=== PATIENT | female | born 1995 | race Caucasian/White ===

== ENCOUNTER 2020-05-18 09:58 | Emergency (ER) | payer MEDICAID, SELFPAY ==
--- NOTE | ~2020-05-18 | CT_ITS ---
EXAMINATION: CT ABDOMEN AND PELVIS WITHOUT CONTRAST CLINICAL INFORMATION: Right flank pain. Right lower quadrant pain. COMPARISON: None TECHNIQUE: Multidetector volumetric imaging was performed from the superior aspect of the liver through the pubic symphysis. Sagittal and coronal reformatted images were obtained on the technologist's workstation. This CT examination was performed using dose optimization techniques as appropriate, variously including the following: *Automated exposure control *Adjustment of mA and/or kV according to patient size (this includes techniques or standardized protocols for targeted exams where dose is matched to indication/reason for exam; i.e. extremities or head) *Use of iterative reconstruction technique DLP: 299 mGy-cm FINDINGS: LUNG BASES: The visualized lung bases are unremarkable. LIVER, GALLBLADDER, AND BILIARY TREE: The liver is normal in size, shape, and attenuation. No focal hepatic lesion or biliary ductal dilatation is present. The gallbladder is unremarkable with no evidence of radiopaque gallstones, gallbladder wall thickening, or obvious pericholecystic inflammatory changes. PANCREAS: Unremarkable. SPLEEN: Unremarkable. ADRENAL GLANDS: Unremarkable. KIDNEYS AND URETERS: A nonobstructing calculus in the upper pole the right kidney measures 0.3 cm. There is an adjacent tiny punctate calculus. There is no hydronephrosis. No ureteric calculus is demonstrated. There is no hydronephrosis. The kidneys are otherwise unremarkable. BLADDER: Unremarkable. GASTROINTESTINAL TRACT: The stomach and duodenum are unremarkable. No abnormality of the small bowel or mesentery is demonstrated. The colon is unremarkable. The appendix is partially visualized. No inflammatory changes are seen. ABDOMINAL WALL: No significant hernia is appreciated. LYMPH NODES: Normal. VASCULAR: Unremarkable. PELVIC VISCERA: The uterus is retroverted but otherwise unremarkable. The adnexa are relatively prominent but within normal limits. There is a small amount of pelvic free fluid. OSSEOUS STRUCTURES: Unremarkable. CT/CT abdomen pelvis wo con IMPRESSION: 1. Nonobstructing calculi right kidney. No ureteric or bladder calculus demonstrated. No hydronephrosis. 2. Difficult visualization of the appendix which appears partially visualized. No inflammatory changes are evident.
[2020-05-18 10:43] VITALS: BP 134/59; PULSE 64; RESP 15; TEMP 37.3; O2SAT 99; BMI 20.1
--- NOTE | 2020-05-18 10:52 | ED_ITS ---
HPI - General Adult General Chief complaint: Abdominal Pain Stated complaint: KIDNEY STONES Time Seen by Provider: 05/18/20 10:50 Source: patient Mode of arrival: ambulatory Limitations: no limitations History of Present Illness HPI narrative: 24-year-old female who presents emergency department for evaluation of right flank and right lower quadrant pain. She states the pain started yesterday afternoon and came on suddenly. She states the pain is a constant, sharp pain which is 10/10 at its worst. The pain does not change with movement. She states that she has had urinary frequency and dysuria. She is not certain when her last menstrual period occurred but she believes that she is due for a menstrual period in the next 1-2 days. She states she has had chills, nausea and has vomited 2 to 3 times a day since the onset of the pain. She took ibuprofen yesterday with no relief for pain. She states she has had similar pain in the past February 2020 and she was diagnosed with a kidney stone. She states that her pain is currently 8/10 in the emergency department. Related Data Previous Rx's Medication Instructions Recorded ondansetron 4 mg PO Q6-8H PRN #14 tab 05/18/20 oxycodone 5 mg PO Q4H PRN #14 tab 05/18/20 Allergies Allergy/AdvReac Type Severity Reaction Status Date / Time No Known Allergies Allergy Unverified 12/21/19 16:32 Review of Systems Review of Systems: Yes all other systems are reviewed and are negative Neurologic: Reports Abnormal speech present [facility] Past Medical History [facility] Narrative: Patient has no chronic medical problems, she denies tobacco use, she occasionally drinks alcohol, once or twice a month, she denies drug use . Medical History (Updated 05/18/20 @ 13:25 by Shade Donnelly MD) Kidney stones Social History Social History Advance Directives: No Advance Directives Information Provided: Yes Physical Exam Vital Signs: Vital Signs: Last Vital Signs Temp 99.2 F 05/18/20 10:43 Pulse 64 05/18/20 10:43 Resp 15 05/18/20 10:43 BP 134/59 L 05/18/20 10:43 Pulse Ox 99 05/18/20 10:43 Body Mass Index 20.1 Const: General: cooperative and healthy appearing Nutritional Appearance: thin Orientation/consciousness: oriented to person and oriented to place Limitations: no limitations HENMT: Head: Yes normal to inspection, Yes normocephalic and Yes atraumatic Ears: external ears normal General nose exam: Normal external nose present Face and sinus: Yes normal facial exam Mouth: Normal oral and palatal mucosa present Throat: Yes posterior oropharynx normal Eyes: Periorbital: periorbital findings normal Eyelids: Yes eyelids normal Conjunctivae: conjunctivae normal Sclerae: sclerae normal Corneas: corneas normal Pupils: Equal, round and reactive pupils present Direct Ophthalmoscopy: normal light reflex Neck: Neck: Yes full ROM, Yes no lymphadenopathy, Yes no meningeal signs, Yes trachea midline and Yes supple Chest: Chest palpation & inspection: normal inspection of the chest and normal palpation of entire chest wall Resp: Effort & Inspection: normal respiratory effort and able to speak in complete sentences Auscultation: clear to auscultation bilaterally Cardio: Rate: regular rate Rhythm: regular rhythm Heart sounds: S1 normal heart sound present, S2 normal heart sound present and no murmurs GI: Inspection: Yes normal to inspection Palpation (GI): Soft to palpation, Tenderness to palpation present (GI) (Mild right lower quadrant), no guarding, not rigid and No hepatosplenomegaly present : General: Yes CVA tenderness ([id number] right sided) Back/Spine/Pelvis: Cervical Spine: normal cervical lordosis Thoracic/Lumbar Spine: thoracic and lumbar spine normal to inspection Skin: Lesions: no lesions Rashes: no rashes Wounds: no wounds Neuro: General: oriented to person, oriented to place and no meningeal signs Cranial nerves: Yes Equal, round and reactive pupils present Cognition (Neuro): normal cognition Speech: Abnormal speech present Motor exam (neuro): 5/5 motor strength present throughout Extrem: General: Yes normal to inspection and Yes full ROM Psych: Appearance: well kempt Mental Status: mental status grossly normal Speech and movement: Normal speech and movement present Affect: normal affect Attitude: cooperative Thought process: Normal thought process present Thought content: Normal thought content present Course Course Course Narrative: 24-year-old female with a history of kidney stones February 2020 who presents emergency department for evaluation of sudden onset of right lower quadrant and right flank pain. Physical examination did reveal tenderness in these areas the patient's pain is treated with Toradol 30 mg IV, her nausea was treated with Zofran 4 mg IV and she was given normal saline x1 L. I did order a workup on this patient to include laboratory evaluation and CT scan of abdomen pelvis without contrast to evaluate for possible kidney stones. 1316: The patient's pain improved with the above treatment. The patient's repeat abdominal exam did reveal [id number] right lower, suprapubic and left lower quadrant tenderness with resolution the right flank CVA tenderness. Patient's laboratory evaluation reveals slight elevation of white blood count [id number], the patient did have 50-75 RBC and 0 WBCs in her urine. CT scan of the abdomen pelvis without IV contrast did not reveal a clear cause for the patient's pain. The patient does have nausea right renal calculus with no hydronephrosis and no hydroureter. The patient's appendix was only partially visualized but there was no inflammatory changes noted. At this time I do not have a clear etiology for the patient's pain but I suspect that it may still be renal colic. Appendicitis nasal be considered. The patient was advised to take Tylenol and ibuprofen for pain for pain not relieved by these 2 medications she was given prescription for oxycodone. I did discuss the addicting potential oxycodone with patient. She was also given a prescription for Zofran. I did tell the patient she continues to have pain tomorrow than she needs to return to the emergency department 1st re-evaluated or possible appendicitis. [facility] search revealed no prescriptions for controlled medications. Medical Decision Making Lab Data Result diagrams: 05/18/20 10:56 05/18/20 10:56 Labs: Lab Results 05/18/20 05/18/20 05/18/20 Range/Units 10:56 10:56 10:56 WBC 12.2 H (4.8-10.8) X10*3/uL RBC 4.10 L (4.20-5.50) X10*6/uL Hgb 12.2 (12.0-16.0) g/dl Hct 37.0 (37-47) % MCV 90.2 (80-98) fL MCH 29.8 (27.0-33.0) pg MCHC 33.0 (31.0-35.0) g/dl RDW 13.2 (11.0-16.0) % Plt Count 292 (160-400) X10*3/uL MPV 10.4 (9.4-12.3) fL Immature Gran % (Auto) 0.3 (0.0-0.4) % Neut % (Auto) 75.6 H (45-73) % Lymph % (Auto) 16.3 L (20-40) % [facility] % (Auto) 6.6 (2-11) % Eos % (Auto) 0.9 (0-4) % Baso % (Auto) 0.3 (0-2) % Lymph # (Auto) 2.0 (1.2-4.9) X10*3/uL [facility] [place] [facility] # (Auto) 0.8 (0.1-1.2) X10*3/uL Eos # (Auto) 0.1 (0.0-0.4) X10*3/uL Baso # (Auto) 0.0 (0.0-0.2) X10*3/uL Abs Immat Gran (auto) 0.04 H (0.00-0.03) X10*3/uL Absolute Neuts (auto) 9.2 H (2.0-8.3) X10*3/uL Absolute Nucleated RBC 0.000 (0.0-0.012) X10*3/uL Nucleated RBC % (auto) 0.0 (0.0-0.2) /100WBC Sodium 141 (135-145) mmol/L Potassium 3.9 (3.3-5.1) mmol/L Chloride 108 (96-108) mmol/L Carbon Dioxide 26 (22-29) mmol/L Anion Gap 11 L (12-20) BUN 13 (9-16) mg/dL Creatinine 0.72 (0.5-1.4) mg/dL Estim Creat Clear Calc 95.7 Estimated GFR > 60 Random Glucose 83 (60-115) mg/dL Calcium 8.6 (8.4-10.2) mg/dL Total Bilirubin 0.6 (0.0-1.0) mg/dL AST 17 (5-31) U/L ALT 12 (0-31) U/L Alkaline Phosphatase 55 (39-117) U/L Total Protein 6.7 (6.5-8.0) g/dL Albumin 4.5 (3.5-5.0) g/dL Lipase 11 (8-78) U/L Urine Color YELLOW Urine Appearance HAZY Urine pH 6.0 (5.0-8.0) Ur Specific [place] 1.025 (1.005-1.025) Urine Protein NEG (NEG-TRACE) MG/DL Urine Glucose (UA) NEG (NEG) MG/DL Urine Ketones NEG (NEG) MG/DL Urine Blood 2+ H (NEG) Urine Nitrite NEG (NEG) Ur Leukocyte Esterase NEG (NEG) Urine RBC 10-14 H (0) /HPF Urine WBC 0-2 (0-4) /HPF Ur Squamous Epith Cells 1+ /LPF Urine Bacteria TRACE /LPF Urine Mucus 3+ /LPF Urine Test NEGATIVE (NEGATIVE) Discharge Plan Discharge Clinical Impression: Renal colic on right side Abdominal pain Qualifiers: Abdominal location: right lower quadrant Qualified Code(s): R10.31 - Right lower quadrant pain Patient Disposition: Home, Self-Care Instructions: Renal Colic (ED), Abdominal Pain (ED) Additional Instructions: Your laboratory evaluation did reveal an elevated white blood cell count with blood in her urine otherwise was unremarkable. The CT scan of your abdomen pelvis without IV contrast did not reveal a clear cause for your pain. You do have a stone in your right kidney but this is not causing your pain. At this time I believe that your pain is related to kidney pain and this is called renal colic 1 we cannot find stone. I am also concerned that he might have appendicitis since you do have tenderness in the right lower part of her abdomen however I do not think that we can make this diagnosis at this time. Take ibuprofen 200 mg pills, 3 pills every 6 hours as needed for pain. Take Tylenol (acetaminophen) 500 mg pills, 2 pills every 4-6 hours as needed for pain. For pain not relieved by ibuprofen or Tylenol take oxycodone 5 mg pills, 1 pill every 4 hours as needed for pain. Do not drive or work while taking this medication since they can cause sleepiness. Oxycodone is a narcotic medication that can be addicting. If you are concerned about addiction you can ask the pharmacist for less pills or do not get this prescription filled. Take Zofran (ondansetron) 4 mg ODT, 1 pill dissolved in mouth every 8 hours as needed for nausea or vomiting. If you still have pain tomorrow especially if it is in the right lower part of your belly, then you need to return to the emergency department so that we can re-evaluate you for possible appendicitis. Follow-up with your doctor in 2 days. Please return to the emergency department if your symptoms get worse or if you develop any symptoms that are concerning to you. Prescriptions: New ondansetron 4 mg tablet,disintegrating 4 mg PO Q6-8H PRN (Reason: nausea and vomiting) Qty: 14 RF: 0 oxycodone 5 mg tablet 5 mg PO Q4H PRN (Reason: pain) Qty: 14 RF: 0
[2020-05-18] MEDS: Ketorolac Tromethamine 30 MG/ML VIAL IVPUSH (10:59)
[2020-05-18] MEDS: 0.9 % Sodium Chloride 1,000 ML 999 ML IV (11:00)
[2020-05-18] MEDS: ondansetron HCL 4 MG/2 ML VIAL IVPUSH (11:00)
[2020-05-18 11:07] LABS: MANUAL DIFF FLAG NO
[2020-05-18 11:09] LABS: Basophils Percent Auto 0.3 % (0-2); Eosinophils Absolute Auto 0.1 X10*3/uL (0.0-0.4); Eosinophils Percent Auto 0.9 % (0-4); Hemoglobin 12.2 g/dl (12.0-16.0); Imm Gran Abs Auto 0.04 X10*3/uL (0.00-0.03); Imm Gran Pct Auto 0.3 % (0.0-0.4); Lymphocytes Percent Auto 16.3 % (20-40); Mean Corpuscular Hemoglobin 29.8 pg (27.0-33.0); Mean Corpuscular Volume 90.2 fL (80-98); Mean Platelet Volume 10.4 fL (9.4-12.3); Monocytes Absolute Auto 0.8 X10*3/uL (0.1-1.2); Monocytes Percent Auto 6.6 % (2-11); Neutrophils Absolute Auto 9.2 X10*3/uL (2.0-8.3); Neutrophils Percent Auto 75.6 % (45-73); Platelet Count 292 X10*3/uL (160-400); Red Cell Distribution Width 13.2 % (11.0-16.0); White Blood Count 12.2 X10*3/uL (4.8-10.8)
[2020-05-18 11:20] LABS: Appearance Urine HAZY; Color Urine YELLOW; Glucose Urine UA NEG (NEG); Leukocyte Esterase Urine NEG (NEG); Nitrite Urine NEG (NEG); Specific Gravity - Urine 1.025 (1.005-1.025); Urine Blood 2+ (NEG); Urine Ketones NEG (NEG); Urine Protein NEG (NEG-TRACE)
[2020-05-18 11:22] LABS: UPreg QC Valid YES; Urine Pregnancy NEGATIVE (NEGATIVE)
[2020-05-18 11:36] LABS: Bacteria Urine TRACE /LPF; Mucus Urine 3+ /LPF; Squamous Epithelial Cell Urine 1+ /LPF; WBC Urine 0-2 /HPF (0-4)
[2020-05-18 11:39] LABS: Alanine Aminotransferase 12 U/L (0-31); Albumin Level 4.5 g/dL (3.5-5.0); Alkaline Phosphatase 55 U/L (39-117); Anion Gap 11 (12-20); Aspartate Amino Transferase 17 U/L (5-31); Bilirubin Total 0.6 mg/dL (0.0-1.0); Blood Urea Nitrogen 13 mg/dL (9-16); Calcium 8.6 mg/dL (8.4-10.2); Carbon Dioxide 26 mmol/L (22-29); Chloride 108 mmol/L (96-108); Creatinine Clr Calc Pharmacy 95.7; Estimated Glomerular Filt Rate > 60; Glucose Random 83 mg/dL (60-115); Lipase 11 U/L (8-78); Potassium 3.9 mmol/L (3.3-5.1); Sodium 141 mmol/L (135-145); Total Protein 6.7 g/dL (6.5-8.0)
== END 2020-05-18 13:41 | disposition home or self-care (01) ==
PROVIDERS: Emergency Provider Emergency Medicine Emergency Medical Services
DX: N20.0 Calculus of kidney (principal); R10.31 Right lower quadrant pain; Z87.442 Personal history of urinary calculi
CPT/HCPCS: 36415; 74176; 80053; 81001; 81025; 83690; 85025; 96361; 96374; 96375; 99283; 99284; J1885; J2405

== ENCOUNTER 2024-08-02 15:15 | Outpatient (REF) | payer MEDICAID, SELFPAY ==
[2024-08-02 16:05] LABS: MANUAL DIFF FLAG NO
[2024-08-02 16:10] LABS: Basophils Absolute Auto 0.1 X10*3/uL (0.0-0.2); Basophils Percent Auto 0.6 % (0-2); Eosinophils Absolute Auto 0.1 X10*3/uL (0.0-0.4); Eosinophils Percent Auto 0.4 % (0-4); Hematocrit 37.5 % (37.0-47.0); Hemoglobin 12.5 g/dl (12.0-16.0); Imm Gran Abs Auto 0.06 X10*3/uL (0.00-0.03); Imm Gran Pct Auto 0.5 % (0.0-0.4); Lymphocytes Absolute Auto 2.9 X10*3/uL (1.2-4.9); Lymphocytes Percent Auto 23.2 % (20-40); Mean Corpuscular HGB Conc 33.3 g/dl (31.0-35.0); Mean Corpuscular Hemoglobin 29.6 pg (27.0-33.0); Mean Corpuscular Volume 88.7 fL (80.0-98.0); Mean Platelet Volume 10.2 fL (9.4-12.3); Monocytes Absolute Auto 0.8 X10*3/uL (0.1-1.2); Monocytes Percent Auto 5.9 % (2-11); Neutrophils Absolute Auto 8.8 x10*3/uL (2.0-8.3); Neutrophils Percent Auto 69.4 % (45-73); Platelet Count 340 X10*3/uL (160-400); Red Blood Count 4.23 X10*6/uL (4.20-5.50); Red Cell Distribution Width 13.3 % (11.0-16.0); White Blood Count 12.6 X10*3/uL (4.8-10.8)
--- OUTSIDE RECORDS SUMMARY | 2024-08-02 16:17 | XMS_ITS | Clinical Summary ---
Author Organization [facility] Address [address] [place] [phone] Phone Care Team Providers Care Title Insurance Agent Name Role Phone Unavailable Primary Care Provider Unavailabl e Immunizations Immunization Administration Dates Next Due DTP 12/07/1997,02/26/1997,1996 DTaP 5 08/16/2001,11/21/1998 H1N1 03/05/2009 HPV, Quadrivalent 08/07/2011,03/20/2010,02/23/20 09 Hep B, ped/adol 12/07/1997,1996,1996 Hib (PRP-T) 03/08/1998, 8,02/26/1997, 997 IPV 08/16/2001 Influenza Split 03/20/2010 Influenza, injectable, trivalent 02/22/2009 MMR 08/16/2001,12/07/1997 Meningococcal Conj (Menactra) MCV4P 02/22/2009 OPV 12/07/1997,02/26/1997,1996 Tdap 02/22/2009 Varicella 11/21/1998 Family History Relation Name Status Comments Father Alive Father: Alive a nd well Maternal Grandfather Materna l grandfather: Elevated cholesterol Maternal Grandmother Materna l grandmother: Asthma, Diabetes mellitus Mother Alive Mother: Migrain es Other AUNT: Seizure d isorder Sister Alive Sister: Alive a nd well Social History Tobacco Use Types Packs/Day Years Used Date Smoking Tobacco: Never Assessed Comments Unknown Sex and Gender Information Value Date Recorded Sex Assigned at Not on file Legal Sex Female 4:41 PM EDT Gender Identity Not on file Sexual Orientation Not on file Last Filed Vital Signs Vital Sign Reading Time Taken Comments Blood Pressure 102/62 12/03/2011 12:00 AM EDT Pulse - - Temperature 36.1 ??C (96.9 ??F) 12/03/2011 12:00 AM E DT Respiratory Rate - - Oxygen Saturation - - Inhaled Oxygen Concentration - - Weight 53.3 kg (117 lb 8 oz) 12/03/2011 12:00 AM EDT Height 157.5 cm (5' 2 ) 12/03/2011 12:00 AM EDT Body Mass Index 21.49 12/03/2011 12:00 AM EDT Plan of Treatment Health Maintenance Due Date Last Done Comments Varicella Vaccines (2 of 2 - 2-dose childhood series) 09/13/2001 11/21/1998 DTaP,Tdap,and Td Vaccines (7 - Td or Tdap) 02/22/2019 02/22/2009, 08/16/2001, 11/21/1998, Additional history exists Influenza Vaccines (#1) 2023 03/20/2010, 02/22 COVID-19 Vaccine ( season) 2023 Hepatitis B Vaccines Completed 12/07/1997, 1996, 1996 HIB Vaccines Completed 03/08/1998, 07/1997, 02/26/1997, Additional history exists IPV Vaccines Completed 08/16/2001, 07/1997, 02/26/1997, Additional history exists MMR Vaccines Completed 08/16/2001, 12/07/1997 Meningococcal Vaccine Aged Out 02/22/2009 No maik jane eligible based on patient's age to complete this topic HPV Vaccines Completed 08/07/2011, 03/05, 02/22/2009 Hepatitis A Vaccines Aged Out No long er eligible based on patient's age to complete this topic Men B Vaccine Aged Out No longer elig ible based on patient's age to complete this topic Pneumococcal Vaccine Aged Out No long er eligible based on patient's age to complete this topic
--- OUTSIDE RECORDS SUMMARY | 2024-08-02 16:17 | XMS_ITS | Encounter Summary ---
Author Organization [facility] Address [address] [place] [phone] Phone Care Team Providers Care Operations Technician Name Role Phone Staci Birmingham DO Primary Care Provider [phone] Encounter Details Date Type Department Care Team (Late st Contact Info) Description 11/17/2011 Documentation [facility] [place] [facility] [address] [place] [address] Family Medicine, Physician [address] [place] [address] Social History Tobacco Use Types Packs/Day Years Used Date Smoking Tobacco: Never Assessed Comments Unknown Sex and Gender Information Value Date Recorded Sex Assigned at Not on file Legal Sex Female 4:41 PM EDT Gender Identity Not on file Sexual Orientation Not on file documented as of this encounter Plan of Treatment Not on file documented as of this encounter Visit Diagnoses Not on filedocumented in this encounter Care Teams Operations Technician Relationship Specialty Start Date End Date Staci Birmingham DO [address] [facility] [place] [id number] PCP - General 11/13/16 07/16/22 documented as of this encounter
--- OUTSIDE RECORDS SUMMARY | 2024-08-02 16:17 | XMS_ITS | Encounter Summary ---
Author Organization [employer] Address [address] [place] [address] Care Team Providers Care Merchandise Worker Name Role Phone Unavailable Primary Care Provider Unavailabl e Reason for Visit * Reason Onset Date Comments chartprep 08/01/2024 Encounter Details Date Type Department Care Team (Late st Contact Info) Description 08/01/2024 Telephone [facility] MEDICINE [address] [place] [address] aRmya Partida MA chartprep Social History Tobacco Use Types Packs/Day Years Used Date Smoking Tobacco: Never Assessed Housing Stability Answer Date Recorded What is your housing situation today? I have marcy ding 07/20/[address] you li ve. Do you have problems with any of the following? None of the above 07/20/2024 Food Insecurity Answer Date Recorded Within the past 12 months, y ou worried that your food would run out before you got money to buy more: Never True 07/20/2024 Within the past 12 months,th e food you bought just didn't last and you didn't have enough money to get more: Never True Transportation Answer Date Recorded In the past 12 months, has l ack of transportation kept you from medical appts, meetings, work or from getting things needed for daily living? No 07/20/2024 Utilities Answer Date Recorded In the past 12 months, has t he electric, gas, oil or water company threatened to shut off services in your home? No 07/20/2024 Internet Access Answer Date Recorded Internet Access Q1 Yes 07/20/2024 Internet Access Q2 Not on file 07/20/2024 Comments Unknown Sex and Gender Information Value Date Recorded Sex Assigned at Female 02/02/2022 10:30 AM EDT Legal Sex Female 10:30 AM EDT Gender Identity Female 02/02/2022 10:30 AM EDT Sexual Orientation Lesbian or [place] 02/02/2022 10 :30 AM EDT documented as of this encounter Miscellaneous Notes * Telephone Encounter - Ramya Partida MA - 08/01/2024 11:26 AM EDT Chart Prep Labs: done Images: done Referrals: not applicable Vaccines due: Tdap,covid, flu Screenings: pap smear Overdue care gaps: SBIRT, PHQ-9, JOSÉ LUIS-7, Disability screen, and Tobacco documented in this encounter Plan of Treatment Upcoming Encounters Date Type Department Care Team (Late st Contact Info) Description 08/16/2024 9:00 AM EDT Procedure Visit [facility] MEDICINE [address] [place] [phone] Ernestina Vera FNP [address] [place] [address] 09/01/2024 1:30 PM EDT Office Visit [facility] MEDICINE [address] [place] [phone] Ernestina Vera FNP [address] [place] [address] documented as of this encounter Visit Diagnoses Not on filedocumented in this encounter
--- OUTSIDE RECORDS SUMMARY | 2024-08-02 16:17 | XMS_ITS | Clinical Summary ---
Author Organization [employer] Address [address] [facility] [facility] [address] [place] [id number] Care Team Providers Care Network Applications Specialist Name Role Phone Unavailable Primary Care Provider Unavailabl e Allergies No known active allergies Medications naproxen (Naprosyn) 500 MG tablet Take 1 tab bid prn for pain 30 tablet 08/02/2024 Active Active Problems No known active problems Encounters Date Type Department Care Team Description 08/02/2024 2:00 PM EDT Office Visit [facility] [address] [place] [phone] Ernestina Vera FNP Adult wellness visit (Primary Dx); Intractable episodic headache, unspecified headache type; Dysmenorrhea 08/02/2024 Travel 08/01/[address] [address] Ramya Partida MA chartprep 07/20/2024 Patient Outreach [facility] [address] [place] [address] Ernestina Vera FNP Pre-visit Planning (SDOH negative, Tobacco screening negative. ) from Last 3 Months Immunizations Name Administration Dates Next Due DTP 12/07/1997,02/26/1997,1996 DTaP, 5 pertussis antigens 08/16/2001,11/21/1998 HPV, Quadrivalent 08/07/2011,03/20/2010,02/23/20 09 Hep B, Adolescent or Pediatric 12/07/1997,1996,1996 Hib (PRP-T) 03/08/1998, 8,02/26/1997,12/25 IPV 08/16/2001 Influenza, IIV3, injectable 02/22/2009 Influenza, Split (incl. nila fied surface antigen) 03/20/2010 MMR 08/16/2001,12/07/1997 Meningococcal MCV4P ACYW-135 02/22/2009 Novel Wqvalylae-[id number], all formulations 03/05/2009 OPV, Trivalent 12/07/1997,02/26/1997,1996 Tdap 02/22/2009 Varicella 11/21/1998 Family History Medical History Relation Name Comments Cancer Maternal Grandfather Asthma Maternal Grandmother Diabetes Maternal Grandmother Hypertension Maternal Grandmother Arthritis Mother stomach ulcer Mother Relation Name Status Comments Maternal Grandfather Maternal Grandmother Mother Social History Tobacco Use Types Packs/Day Years Used Date Smoking Tobacco: Never Smokeless Tobacco: Never Tobacco Cessation:Counseling Given: Not Answered Housing Stability Answer Date Recorded What is [...] or [place] 02/02/2022 10 :30 AM EDT Last Filed Vital Signs Vital Sign Reading Time Taken Comments Blood Pressure 120/71 08/02/2024 2:17 PM EDT Pulse 66 08/02/2024 2:17 PM EDT Temperature 36.4 ??C (97.6 ??F) 08/02/2024 2:17 PM ED T Respiratory Rate 17 08/02/2024 2:17 PM EDT Oxygen Saturation 98% 08/02/2024 2:17 PM EDT Inhaled Oxygen Concentration - - Weight 54.4 kg (120 lb) 08/02/2024 2:17 PM EDT Height 160 cm (5' 3 ) 08/02/2024 2:17 PM EDT Body Mass Index 21.26 08/02/2024 2:17 PM EDT Plan of Treatment Upcoming Encounters Date Type Department Care Team (Late st Contact Info) Description 08/16/2024 9:00 AM EDT Procedure Visit [facility] [address] [place] [address] Ernestina Vera, MEENAKSHI [address] [place] [address] 09/01/2024 1:30 PM EDT Office Visit [facility] [address] [place] [address] Ernestina Vera, MEENAKSHI [address] [place] [address] Health Maintenance Due Date Last Done Comments Depression Screening 1996 HIV Screening 1996 Hepatitis C Screening 2014 Pap Smear 2017 DTaP/Tdap/Td Vaccines (7 - Td or Tdap) 02/22/2019 02/22/2009, 08/16/2001, 11/21/1998, Additional history exists COVID-19 Vaccine ( season) 2023 Influenza Vaccine (#1) 2023 0, 03/05/2009, 02/22/2009 SDOH Screening 07/20/2025 07/20/2024 Alcohol/Substance Use Screening 08/02/2025 08/02/2024 Family Planning (PISQ) 08/02/2025 08/02/2024 Tobacco Screening 08/02/2025 08/02/2024 Zoster Vaccines (1 of 2) 2046 RSV Patients and Patients Aged 60 years or older (1 - 1-dose 75+ series) 10/02/2071 Hepatitis B Vaccines Completed 12/07/1997, 1996, 1996 HIB Vaccines Completed 03/08/1998, 07/1997, 02/26/1997, Additional history exists IPV Vaccines Completed 08/16/2001, 07/1997, 02/26/1997, Additional history exists Meningococcal Vaccine Aged Out 02/22/2009 No maik jane eligible based on patient's age to complete this topic HPV Vaccines Completed 08/07/2011, 03/05, 02/22/2009 Hepatitis A Vaccines Aged Out No long er eligible based on patient's age to complete this topic Pneumococcal Vaccine: Pediatrics (0 to 5 Years) and At-Risk Patients (6 to 49) Years) Aged Out No longer eligible based on patient's age to complete this topic RSV under 20 months Aged Out No longe r eligible based on patient's age to complete this topic Rotavirus Vaccines Aged Out No longer eligible based on patient's age to complete this topic Procedures Procedure Name Priority Date/Time Associated Diagnosis Comments CBC WITH AUTO DIFFERENTIAL Routine 08/02/2024 3:17 PM EDT Adult wellness visit from Last 3 Months Results * (ABNORMAL) CBC auto differential (08/02/2024 3:17 PM EDT) White Blood Count 12.6(H) 4.8 - 10.8 X10*3/uL [facility] Red Blood Count 4.23 4.20 - 5.50 X10*6/uL [facility] Hemoglobin 12.5 12.0 - 16.0 g/dl [facility] Hematocrit 37.5 37.0 - 47.0 % [facility] Mean Corpuscular Volume 88.7 80.0 - 98.0 fL [facility] Mean Corpuscular Hemoglobin 29.6 27.0 - 33.0 pg [facility] Mean Corpuscular HGB Conc 33.3 31.0 - 35.0 g/dl [facility] Red Cell Distribution Width 13.3 11.0 - 16.0 % [facility] Platelet Count 340 160 - 400 X10*3/uL [facility] Mean Platelet Volume 10.2 9.4 - 12.3 fL [facility] Neutrophils Percent Auto 69.4 45 - 73 % [facility] Imm Gran Pct Auto 0.5(H) 0.0 - 0.4 % [facility] Lymphocytes Percent Auto 23.2 20 - 40 % [facility] Monocytes Percent Auto 5.9 2 - 11 % [facility] Eosinophils Percent Auto 0.4 0 - 4 % [facility] Basophils Percent Auto 0.6 0 - 2 % [facility] NRBC Pct Auto 0.0 0.0 - 0.2 /100WBC [facility] Neutrophils Absolute Auto 8.8(H) 2.0 - 8.3 x10*3/uL [facility] Imm Gran Abs Auto 0.06(H) 0.00 - 0.03 X10*3/uL [facility] Lymphocytes Absolute Auto 2.9 1.2 - 4.9 X10*3/uL [facility] Monocytes Absolute Auto 0.8 0.1 - 1.2 X10*3/uL [facility] Eosinophils Absolute Auto 0.1 0.0 - 0.4 X10*3/uL [facility] Basophils Absolute Auto 0.1 0.0 - 0.2 X10*3/uL [facility] NRBC Abs Auto 0.000 0.0 - 0.012 X10*3/uL [facility] Blood Venous blood specimen / Unknown 08/02/2024 3:17 PM EDT 08/02/2024 4:03 PM EDT us Ernestina Jody MASSAGE THERAPY INSTRUCTOR LAB BLOOD ORDERABLES Final Res ult [facility] [address] [place] [address] [phone] from Last 3 Months Insurance [facility]
--- OUTSIDE RECORDS SUMMARY | 2024-08-02 16:17 | XMS_ITS | Encounter Summary ---
Author Organization [employer] Address [address] [facility] [address] [place] [address] Care Team Providers Care City Bus Driver Name Role Phone Unavailable Primary Care Provider Unavailabl e Encounter Details Date Type Department Care Team (Late st Contact Info) Description 08/02/2024 2:00 PM EDT Office Visit [facility] [address] [place] [address] Ernestina Vera FNP [address] [place] [address] Adult wellness visit (Primary Dx); Intractable episodic headache, unspecified headache type; Dysmenorrhea Social History Tobacco Use Types Packs/Day Years [...] AM EDT documented as of this encounter Last Filed Vital Signs Vital Sign Reading [...] Mass Index 21.26 08/02/2024 2:17 PM EDT documented in this encounter Plan of Treatment Upcoming Encounters Date Type Department Care Team (Late st Contact Info) Description 08/16/2024 9:00 AM EDT Procedure Visit [facility] [address] [place] [phone] Ernestina Vera FNP [address] [place] [address] 09/01/2024 1:30 PM EDT Office Visit [facility] [address] [place] [phone] Ernestina Vera FNP [address] [place] [address] Scheduled Orders Name Type Priority Associated Diagnoses Orde r Schedule Chlamydia/N. Gonorrhoeae RNA, TMA, Urogenitial Microbiology Routine Adult Wellness Visit Ordered: 08/02/2024 HIV-1/2 Antigen and Antibodies, Fourth Generation, with Reflexes Lab Routine Adult Wellness Visit Expected: 08/02/2024 (Approximate), Expires: 08/01/2025 Hepatitis B Core Antibody, Total Lab Routine Adult Wellness Visit Expected: 08/02/2024 (Approximate), Expires: 08/01/2025 Hepatitis B surface antigen, EIA Lab Routine Adult Wellness Visit Expected: 08/02/2024 (Approximate), Expires: 08/01/2025 Hepatitis B Surface Antibody, Qualitative Lab Routine Adult Wellness Visit Expected: 08/02/2024 (Approximate), Expires: 08/01/2025 Hepatitis C Antibody with Reflex to HCV, RNA, Quantitative, Real-Time PCR Lab Routine Adult Wellness Visit Expected: 08/02/2024, Expires: 08/01/2025 Comprehensive Metabolic Panel Lab Routine Adult Wellness Visit Expected: 08/02/2024 (Approximate), Expires: 08/01/2025 TSH Lab Routine Adult wellness visit Expected: 08/02/2024 (Approximate), Expires: 08/01/2025 documented as of this encounter Procedures Procedure Name Priority Date/Time Associated Diagnosis Comments CBC WITH AUTO DIFFERENTIAL Routine 08/02/2024 3:17 PM EDT Adult wellness visit documented in this encounter Results * (ABNORMAL) CBC auto differential (08/02/2024 3:17 PM EDT) White Blood Count 12.6(H) 4.8 - 10.8 X10*3/uL [facility] Red Blood Count 4.23 4.20 - 5.50 X10*6/uL [facility] Hemoglobin 12.5 12.0 - 16.0 g/dl [facility] Hematocrit 37.5 37.0 - 47.0 % [facility] Mean Corpuscular Volume 88.7 80.0 - 98.0 fL [facility] Mean Corpuscular Hemoglobin 29.6 27.0 - 33.0 pg [facility] Mean Corpuscular HGB Conc 33.3 31.0 - 35.0 g/dl [facility] Red Cell Distribution Width 13.3 11.0 - 16.0 % [facility] Platelet Count 340 160 - 400 X10*3/uL [facility] Mean Platelet Volume 10.2 9.4 - 12.3 fL [facility] Neutrophils Percent Auto 69.4 45 - 73 % [facility] Imm Gran Pct Auto 0.5(H) 0.0 - 0.4 % [facility] Lymphocytes Percent Auto 23.2 20 - 40 % [facility] Monocytes Percent Auto 5.9 2 - 11 % [facility] Eosinophils Percent Auto 0.4 0 - 4 % [facility] Basophils Percent Auto 0.6 0 - 2 % [facility] NRBC Pct Auto 0.0 0.0 - 0.2 /100WBC [facility] Neutrophils Absolute Auto 8.8(H) 2.0 - 8.3 x10*3/uL [facility] Imm Gran Abs Auto 0.06(H) 0.00 - 0.03 X10*3/uL [facility] Lymphocytes Absolute Auto 2.9 1.2 - 4.9 X10*3/uL [facility] Monocytes Absolute Auto 0.8 0.1 - 1.2 X10*3/uL [facility] Eosinophils Absolute Auto 0.1 0.0 - 0.4 X10*3/uL [facility] Basophils Absolute Auto 0.1 0.0 - 0.2 X10*3/uL [facility] NRBC Abs Auto 0.000 0.0 - 0.012 X10*3/uL [facility] Blood Venous blood specimen / Unknown 08/02/2024 3:17 PM EDT 08/02/2024 4:03 PM EDT Ernestina Vera FLUID PUMP OPERATOR LAB BLOOD ORDERABLES Final Res ult [facility] [address] [place] [address] [phone] documented in this encounter Visit Diagnoses Diagnosis Adult wellness visit- Primary Intractable episodic headache, unspecified headache type Dysmenorrhea documented in this encounter
--- OUTSIDE RECORDS SUMMARY | 2024-08-02 16:17 | XMS_ITS | Encounter Summary ---
Author Organization [employer] Address [address] [place] [address] Care Team Providers Care Hack Saw Operator Name Role Phone Unavailable Primary Care Provider Unavailabl e Encounter Details Date Type Department Care Team (Latest Contact Info) Description 08/02/2024 Travel Social History Tobacco Use Types Packs/Day Years Used Date Smoking Tobacco: Never Smokeless Tobacco: Never Housing Stability Answer Date Recorded What is [...] AM EDT documented as of this encounter Plan of Treatment Upcoming Encounters Date Type Department Care Team ( st Contact Info) Description 08/16/2024 9:00 AM EDT Procedure Visit [facility] [address] [place] [address] Ernestina Vera FNP [address] [place] [address] 09/01/2024 1:30 PM EDT Office Visit [facility] [address] [place] [address] Ernestina Vera FNP [address] [place] [address] documented as of this encounter Visit Diagnoses Not on filedocumented in this encounter
--- OUTSIDE RECORDS SUMMARY | 2024-08-02 16:17 | XMS_ITS | Clinical Summary ---
Author Organization [facility] Address [address] [place] [address] Care Team Providers Care Toll Operator Name Role Phone Unavailable Primary Care Provider Unavailabl e Allergies No known active allergies Medications tamsulosin (FLOMAX) 0.4 MG capsule Take 1 capsule (0.4 mg total) by mouth daily. 7 capsule 9 Active ondansetron (ZOFRAN-ODT) 4 MG disintegrating tablet Take 1 tablet (4 mg total) by mouth 3 times daily (every 8 hours) as needed for nausea or vomiting. Place tablet on tongue to dissolve. 10 tablet 9 Active oxyCODONE-acetamino phen (PERCOCET) 5-325 mg per tablet Take 1 tablet by mouth every 4 (four) hours as needed for severe pain. Max Daily Amount: 6 tablets 15 tablet 9 Active Social History Tobacco Use Types Packs/Day Years Used Date Smoking Tobacco: Never Assessed Comments No Sex and Gender Information Value Date Recorded Sex Assigned at Not on file Legal Sex Female 9:18 AM EDT Gender Identity Not on file Sexual Orientation Not on file Last Filed Vital Signs Vital Sign Reading Time Taken Comments Blood Pressure 131/83 01/21/2019 12:15 PM EDT Pulse 60 01/21/2019 12:15 PM EDT Temperature 37.6 ??C (99.7 ??F) 01/21/2019 12:15 PM E DT Respiratory Rate 18 01/21/2019 12:15 PM EDT Oxygen Saturation 96% 01/21/2019 12:15 PM EDT Inhaled Oxygen Concentration - - Weight - - Height - - Body Mass Index - - Plan of Treatment Health Maintenance Due Date Last Done Comments Hepatitis C Virus Screening 1996 HIV Screening 2009 DTaP/Tdap/Td Vaccines (1 - Tdap) 10/02/2015 Hepatitis B Vaccines (1 of 3 - 19+ 3-dose series) 10/02/2015 COVID-19 Vaccine ( - 2023-2 5 season) 2023 Influenza Vaccine Discontinued 03/20/2010 HPV Vaccines Aged Out No longer eligi ble based on patient's age to complete this topic Pneumococcal Vaccine: Pediat eliseo (0-5 Years) and At-Risk Patients (6 to 49 Years) Aged Out No longer eligible b ased on patient's age to complete this topic
--- OUTSIDE RECORDS SUMMARY | 2024-08-02 16:17 | XMS_ITS | Encounter Summary ---
Author Organization [facility] Address [address] [place] [phone] Phone Care Team Providers Care Display Director Name Role Phone Satci Birmingahm DO Primary Care Provider [phone] Encounter Details Date Type Department Care Team (Late st Contact Info) Description 11/19/2016 Conversion Encounter [facility] [place] [address] [place] [address] Social History Tobacco Use Types Packs/Day Years [...] on filedocumented in this encounter Care Teams Display Director Relationship Specialty Start Date End Date Staci Birmingham DO [address] [place] [address] PCP - General 11/13/16 07/16/22 documented as of this encounter
[2024-08-02 16:48] LABS: Alanine Aminotransferase 21 U/L (0-31); Anion Gap 12 (12-20); Aspartate Amino Transferase 21 U/L (5-31); Bilirubin Total 0.3 mg/dL (0.0-1.0); Blood Urea Nitrogen 13 mg/dL (9-16); Calcium 9.7 mg/dL (8.4-10.2); Carbon Dioxide 27 mmol/L (22-29); Chloride 107 mmol/L (96-108); Estimated Glomerular Filt Rate > 60; Glucose Random 95 mg/dL (60-115); Sodium 142 mmol/L (135-145); Total Protein 7.6 g/dL (6.5-8.0)
[2024-08-02 17:03] LABS: Alkaline Phosphatase 59 U/L (39-117); Thyroid Stimulating Hormone 1.48 uIU/mL (0.32-4.0)
[2024-08-03 08:29] LABS: HBS Num1 2.11 mIU/mL (0-7.99); HBc Num1 0.03 S/CO (0.00-0.79); HBsAGNum1 0.31 S/CO (0.00-0.99); HIV AB/AG Nonreactive (Nonreactive); HIV Num 1 0.12 S/CO (0.00-0.99); Hepatitis B Core Antibody Nonreactive (Nonreactive); Hepatitis B Surface Antigen Negative (Negative); ~HepC Num1 0.07 S/CO (0.00-0.79); ~Hepatitis B Surface Antibody NONREACTIVE (Nonreactive); ~Hepatitis C Antibody Nonreactive (Nonreactive)
== END 2024-08-02 15:16 | disposition home or self-care (01) ==
LOC: HO.HHCL 15:15
PROVIDERS: Visit Provider Nurse Practitioner Family
DX: Z00.00 Encounter for general adult medical examination without abnormal findings (principal)
CPT/HCPCS: 36415; 80053; 84443; 85025; 86704; 86706; 86803; 87340; 87389

== ENCOUNTER 2025-02-08 17:00 | Emergency (ER) | payer MEDICAID, SELFPAY ==
--- NOTE | ~2025-02-08 | XR_ITS ---
CLINICAL HISTORY: pain, injury 4 view right shoulder Comparison: None provided Findings: No fractures or dislocations. No significant loss of joint space or osteophytes. No erosions. No radiopaque foreign body. IMPRESSION: 1. No acute findings This document has been electronically signed by: Noman Mcintosh MD on 02/08/2025 17:41:50
[2025-02-08 17:15] VITALS: BP 144/64; PULSE 80; RESP 18; TEMP 36.8; O2SAT 98; BMI 21.9
--- NOTE | 2025-02-08 17:16 | ED_ITS ---
HPI - General Adult General Chief complaint: Extremity Injury, Upper Stated complaint: right shoulder pain Time Seen by Provider: 02/08/25 17:53 Source: patient Mode of arrival: ambulatory Limitations: no limitations History of Present Illness ED Provider: Celi Cabezas PA-C HPI narrative: Patient is a 29 year old assigned female at with a history of previous right shoulder dislocation presenting to the emergency department today with right shoulder pain after a possible dislocation and reduction. Patient states that she went to grab something off the shelf at work and felt her right shoulder pop out of place and then she was able to get it back in but it took longer than it normally does and is still experiencing pain. Patient denies any other complaints at this time. Related Data Previous Rx's ?Medication ?Instructions ?Recorded ondansetron 4 mg disintegrating 4 mg PO Q6-8H PRN naus ea and 05/18/20 tablet vomiting #14 tabs oxycodone 5 mg tablet 5 mg PO Q4H PRN pain #14 tab s 05/18/20 Allergies Allergy/AdvReac Type Severity Reaction Status Date / Time No Known Allergies Allergy Verified 02/08/25 17:17 Review of Systems Constitutional: Constitutional: Reports as per HPI Eyes: Eyes: Reports as per HPI ENT: Reports as per HPI Cardiovascular: Cardiovascular: Reports as per HPI Respiratory: Respiratory: Reports as per HPI Gastrointestinal: Gastrointestinal: Reports as per HPI Genitourinary: Genitourinary: Reports as per HPI Musculoskeletal: Musculoskeletal: Reports as per HPI Integumentary/Breasts: Skin/Breast: Reports as per HPI Neurologic: Reports as per HPI Psychiatric: Psychiatric: Reports as per HPI Endocrine: Endocrine: Reports as per HPI Hematologic/Lymphatic: Hematologic/Lymphatic: Reports as per HPI Allergic/Immunologic: Allergic/Immunologic: Reports as per HPI [facility] Past Medical History Attestation statement: The following information was validated with the patient. Source: old records reviewed and nursing notes reviewed Medical History Kidney stones Social History Social History Do you have a plan to hurt others: No Plan Physical Exam ED Vital Signs: Vital Signs - 24 hr 02/08/25 17:15 02/08/25 17:57 Temperature 98.3 F 98.3 F Pulse Rate 80 80 Respiratory Rate 18 18 Blood Pressure 144/64 H 144/64 H Pulse Oximetry 98 98 Oxygen Delivery Method Room Air Room Air BMI result Body Mass Index 21.9 Const General: cooperative, no acute distress, alert and awake Nutritional Appearance: well nourished Orientation/consciousness: patient oriented x3 HENMT Head: Yes normal to inspection and Yes atraumatic Ears: hearing grossly normal bilaterally and external ears normal General nose exam: Normal external nose present, no nasal discharge noted and no epistaxis Face and sinus: Yes normal facial exam, No abrasion and No laceration Mouth: Normal oral and palatal mucosa present, no drooling and no muffled voice Eyes General: appearance normal, both eyes and all related structures Periorbital: periorbital findings normal Eyelids: Yes eyelids normal Conjunctivae: conjunctivae normal Pupils: Equal, round and reactive pupils present EOM: EOMs intact bilaterally Neck Neck: Yes normal visual inspection and Yes full ROM Resp Effort & Inspection: normal respiratory effort and able to speak in complete sentences Neuro General: patient oriented x3, moves all extremities and CN's II-XI intact bilaterally Cranial nerves: Yes Equal, round and reactive pupils present Cognition (Neuro): normal cognition Extrem General: Yes normal to inspection, Yes full ROM and Yes capillary refill normal Psych Appearance: grossly normal Mental Status: mental status grossly normal Affect: normal affect Attitude: cooperative Thought process: Normal thought process present Thought content: Normal thought content present Insight: Good insight present (Psych) Course Course Course Narrative: Rapid medical examination performed in triage by Celi Cabezas PA-C: Patient is a 29 year old assigned female at presenting to the emergency department with right shoulder pain. Patient states that she was at work when her right shoulder dislocated and took an abnormally long time to get it back in. Patient states that her shoulder continues to hurt but she believes it is back in place. Detailed physical exam and review of systems are deferred to the tune up mechanic. Imaging ordered. Patient placed back in the waiting room pending room availability and results. Procedures Orthopedic Splinting/Casting R shoulder sprain: Side: right Upper Extremity Immobilizer: sling/shoulder immobilizer Medical Decision Making Medical Decision Making MDM Narrative: Patient is a 29 year old assigned female at with a history of previous right shoulder dislocation presenting to the emergency department today with right shoulder pain after a possible dislocation and reduction. Patient's physical exam was as noted in the physical exam portion of this note. Patient's right shoulder x-ray showed no acute process. I am suspicious the patient dislocated her right shoulder and self reduced it and she now has a right shoulder sprain. I explained my physical exam findings as well as all test results to the patient. I answered all questions asked by the patient. Patient's right shoulder was placed in a sling, without incident. Patient's PMS was intact prior to and after sling placement. I stressed the importance of the patient taking her medication as directed (either prescribed or as the over the counter packaging recommends). I stressed the importance of the patient following up with her primary care provider, the orthopedic team, and given this was a work place injury - the work connection team. I stressed the importance of the patient returning to the emergency department immediately if her symptoms were to worsen or if she were to develop any dizziness, shortness of breath, difficulty breathing, chest pain, blurry vision, loss of vision, nausea, vomiting, abdominal pain, fever, chills, back pain, or any other complaints. Patient verbalized agreement and understanding with this treatment plan and discharge. Differential Diagnosis Differential Diagnoses: The differential diagnosis associated with the presentation includes Right shoulder sprain Right shoulder strain Right shoulder pain Right shoulder dislocation Admission/Observation Consideration of admission/observation: Escalation of care including admission/observation considered Patient would have been admitted to the hospital had her work up had any findings where hospital admission was appropriate and her clinical presentation warranted hospital admission. Independent Interpretation I performed an independent interpretation of an: Plain X-Ray Interpretation: My interpretation is in agreement with the radiologist's impression of this imaging study. Reason for Exam: pain, injury CLINICAL HISTORY: pain, injury 4 view right shoulder Comparison: None provided Findings: No fractures or dislocations. No significant loss of joint space or osteophytes. No erosions. No radiopaque foreign body. IMPRESSION: 1. No acute findings This document has been electronically signed by: Noman Mcintosh MD on 02/08/2025 17:41:50 Dictated By: Noman Mcintosh MD Signed By: Electronically signed by Noman Mcintosh MD 02/08/25 1743 Radiology Impression Discussion of test interpretation with radiology: I have reviewed the radiologist's reading. Discharge Plan Discharge Clinical Impression: Acute shoulder pain, Shoulder sprain Patient Disposition: Home, Self-Care Instructions: Shoulder Sprain (ED), Shoulder Pain (ED) Additional Instructions: Your right shoulder x-ray showed that the shoulder is in the right place and not dislocated. Wear your sling and every 1 hour for 10 minutes be sure to gently move your right elbow to avoid freezing it. Follow up with the orthopedic team and given this was a work place injury - the work connection team. IF you are prescribed home medications and/or you are taking over the counter medications at home - it is very important you continue to do so as prescribed / directed unless told otherwise. Follow up with a primary care provider. Return to the emergency department immediately if your symptoms worsen or if you develop any numbness, tingling, dizziness, shortness of breath, difficulty breathing, chest pain, blurry vision, loss of vision, nausea, vomiting, abdominal pain, fever, chills, back pain, or any other complaints. If you do not have a primary care provider - call any of the below numbers to establish and follow up with a primary care provider. [facility] Primary Care ([place]) [phone] [place] [address], [address] [facility] Primary Care ([address] [place]) [phone] [place] [address], [address] [facility], [address] [facility] Primary Care ([address] [place]) [phone] [place] [address], [address] [facility], [address] [facility] Primary Care ([place]) [phone] [place] [address] 2 [facility], [address] [facility] Family Medicine [phone] [address] [facility] [place], [address] Please see the information below about our Patient Portal. If you are not yet enrolled in the [facility] Patient Portal, you will receive an enrollment email invitation following your visit to any [facility] setting. You may also self-enroll in the Patient Portal by visiting our website: [email or web address] The following information is required to access the Patient Portal: - Your [facility] Medical Record Number - Your personal home email address (must match what is in your electronic medical record, Registration staff can assist with this) - Name - Date of Capabilities of the Patient Portal: - Message some providers - View upcoming appointments - Access your health summary, medical history, and visit history - View current conditions and allergies - View procedure and lab results - View your medications, including guidelines, side effects, and precautions - Complete pre-appointment questionnaires requested by your provider - Ready summary reports of your office visits and procedures To access the Patient Portal Mobile Ade, follow these directions: - Search [place] in the Ade Store or [place] Store - Download the Ade - Search for [facility] - Enter your login/password Prescriptions: No Action ondansetron 4 mg tablet,disintegrating 4 mg PO Q6-8H PRN (Reason: nausea and vomiting) Qty: 14 0RF oxycodone 5 mg tablet 5 mg PO Q4H PRN (Reason: pain) Qty: 14 0RF Rx Instructions: Patient may request partial fill Referrals: [facility] Orthopedic Surgeons [Provider Group] Referral Note: Call to establish and follow up with the orthopedic team. Work Connection [Provider Group] Referral Note: Call to establish and follow up with the work connection team given this happened at work. Stand Alone Forms: Work/School Release Interventions: ED Discharge Assessment Last Done: 02/08/25 17:57 Print Language: Serbian
[2025-02-08 17:57] VITALS: BP 144/64; PULSE 80; RESP 18; TEMP 36.8; O2SAT 98
--- NOTE | 2025-02-08 17:57 | PC.NURSE ---
sling applied to RUE prior to d/c. pt tolerated well.
--- OUTSIDE RECORDS SUMMARY | 2025-02-08 18:54 | XMS_ITS | Encounter Summary ---
Author Organization [facility] Address [address] [place] [phone] Phone Care Team Providers Care Picture Frame Maker Name Role Phone Staci Birmingham DO Primary Care Provider [phone] Encounter Details Date Type Department Care Team (Late st Contact Info) Description 11/19/2016 Conversion Encounter [facility] [place] [address] [place] [address] Social History Tobacco Use Types Packs/Day Years [...] on filedocumented in this encounter Care Teams Picture Frame Maker Relationship Specialty Start Date End Date Staci Birmingham DO [address] [place] [address] PCP - General 11/13/16 07/16/22 documented as of this encounter
--- OUTSIDE RECORDS SUMMARY | 2025-02-08 18:54 | XMS_ITS | Encounter Summary ---
Author Organization [facility] Address [address] [place] [phone] Phone Care Team Providers Care Golf Cart Maker Name Role Phone Staci Birmingham DO Primary Care Provider [phone] Encounter Details Date Type Department Care Team (Late st Contact Info) Description 11/17/2011 Documentation [facility] Family Medicine [address] [place] [address] Family Medicine, Physician [address] [place] [address] Social History Tobacco Use Types [...] on filedocumented in this encounter Care Teams Golf Cart Maker Relationship Specialty Start Date End Date Staci Birmingham DO [address] [facility] [place] [address] PCP - General 11/13/16 07/16/22 documented as of this encounter
--- OUTSIDE RECORDS SUMMARY | 2025-02-08 18:54 | XMS_ITS | Clinical Summary ---
Author Organization [facility] Address [address] [place] [address] Care Team Providers Care Bioinformatics Assistant Name Role Phone Unavailable Primary Care Provider [...] 60 01/21/2019 12:15 PM EDT Temperature 37.6 C (99.7 F) 01/21/2019 12:15 PM EDT Respiratory Rate 18 01/21/2019 12:15 PM EDT [...] - 19+ 3-dose series) 10/02/2015 COVID-19 Vaccine (1 - 2023-2 5 season) 2024 Influenza Vaccine Discontinued 03/20/2010 HPV Vaccines (No Doses Required) Completed Pneumococcal Vaccine: Pediat eliseo (0-5 Years) and At-Risk Patients (6 to 49 Years) Aged Out No longer eligible b ased on patient's age to complete this topic
--- OUTSIDE RECORDS SUMMARY | 2025-02-08 18:54 | XMS_ITS | Clinical Summary ---
Author Organization [facility] Address [address] [place] [phone] Phone Care Team Providers Care Recreational Leader Name Role Phone Unavailable Primary Care Provider [...] AM EDT Pulse - - Temperature 36.1 C (96.9 F) 12/03/2011 12:00 AM EDT Respiratory Rate - - Oxygen Saturation - [...] 11/21/1998, Additional history exists Influenza Vaccines (#1) 2024 03/20/2010, 02/22 COVID-19 Vaccine ( season) 2024 Hepatitis B Vaccines Completed 12/07/1997, 1996, 1996 [...]
--- OUTSIDE RECORDS SUMMARY | 2025-02-08 18:54 | XMS_ITS | Clinical Summary ---
Author Organization [employer] Address [address] [facility] [address] [place] [address] Care Team Providers Care Acupuncture Physician Name Role Phone Ernestina Vera [facility] Primary Care Provider [phone] Allergies No known active allergies Medications naproxen (Naprosyn) 500 MG tabletIndications :Intractable episodic headache, unspecified headache type,Dysmenorrhea Take 1 tab bid prn for pain 30 tablet 08/02/2024 Active Active Problems Problem Noted Date Diagnosed Date Adult wellness visit 08/02/2024 Intractable episodic headache 08/02/2024 Dysmenorrhea 08/02/2024 Immunizations Immunization Administration Dates Next Due DTP 12/07/1997,02/26/1997,1996 DTaP, 5 pertussis antigens 08/16/2001,11/21/1998 HPV, Quadrivalent 08/07/2011,03/20/2010,02/23/20 09 Hep B, Adolescent or Pediatric 12/07/1997,1996,1996 Hib (PRP-T) 03/08/1998, 8,02/26/1997,12/25 IPV 08/16/2001 Influenza, IIV3, injectable 02/22/2009 Influenza, Split (incl. nila fied surface antigen) 03/20/2010 MMR 08/16/2001,12/07/1997 Meningococcal MCV4P [id number] 02/22/2009 Novel [id number], all formulations 03/05/2009 OPV, Trivalent 12/07/1997,02/26/1997,1996 Tdap [...] Q2 Not on file 07/20/2024 Comments Unknown Intention Date Recorded No desire to become (finding) 0 08/02/2024 Sex and Gender Information Value Date Recorded Sex Assigned at Female 02/02/2022 10:30 AM EDT Legal Sex Female 10:30 AM EDT Gender Identity Female 02/02/2022 10:30 AM EDT Sexual Orientation Lesbian or [place] 02/02/2022 10 :30 AM EDT Last Filed Vital Signs Vital Sign Reading Time Taken Comments Blood Pressure 120/71 08/02/2024 2:17 PM EDT Pulse 66 08/02/2024 2:17 PM EDT Temperature 36.4 C (97.6 F) 08/02/2024 2:17 PM EDT Respiratory Rate 17 08/02/2024 2:17 PM EDT Oxygen Saturation 98% 08/02/2024 2:17 PM EDT Inhaled Oxygen Concentration - - Weight 54.4 kg (120 lb) 08/02/2024 2:17 PM EDT Height 160 cm (5' 3 ) 08/02/2024 2:17 PM EDT Body Mass Index 21.26 08/02/2024 2:17 PM EDT Plan of Treatment Health Maintenance Due Date Last Done Comments Depression Screening 1996 Pap Smear 2017 DTaP/Tdap/Td Vaccines (7 - Td or Tdap) 02/22/2019 02/22/2009, 08/16/2001, 11/21/1998, Additional history exists COVID-19 Vaccine ( - season) 2024 Influenza Vaccine (#1) 2024 0, 03/05/2009, 02/22/2009 SDOH Screening 07/20/2025 07/20/2024 Alcohol/Substance Use Screening 08/02/2025 08/02/2024 Disability Screening 08/02/2025 08/02/2024 Family Planning (PISQ) 08/02/2025 08/02/2024 Tobacco Screening 11/03/2025 11/03/2024 Zoster Vaccines (1 of 2) 2046 RSV [...] topic HPV Vaccines Completed 08/07/2011, 03/05, 02/22/2009 HIV Screening Completed 08/02/2024 Hepatitis C Screening Completed 08/02/2024 Hepatitis A Vaccines Aged Out No long er eligible based on patient's age to complete this topic Meningococcal B Vaccine Aged Out No l onger eligible based on patient's age to complete this topic Pneumococcal Vaccine: Pediatrics (0 to 5 Years) and At-Risk Patients (6 to 49) Years Aged Out No longer eligible based on patient's age to complete this topic RSV under 20 months Aged Out No longe r eligible based on patient's age to complete this topic Rotavirus Vaccines Aged Out No longer eligible based on patient's age to complete this topic Procedures Procedure Name Priority Date/Time Associated Diagnosis Comments HEPATITIS C AB W/REFL TO HCV RNA, QN, PCR Routine 08/02/2024 3:17 PM EDT Adult wellness visit HIV 1/2 ANTIGEN/ANTIBODY, FOURTH GENERATION W/RFL Routine 08/02/2024 3:17 PM EDT Adult wellness visit from Last 3 Months or Most Recently Relevant to Health Maintenance Results * Hepatitis C Antibody with Reflex to HCV, RNA, Quantitative, Real-Time PCR (08/02/2024 3:17 PM EDT) Hepatitis C Antibody Nonreactive Nonreactive [facility] Comment:Antibodies to HCV no t detected; does not exclude early acuteHCV infection. Blood Venous blood specimen / Unknown 08/02/2024 3:17 PM EDT 08/02/2024 4:03 PM EDT us Ernestina Vera [facility] LAB BLOOD ORDERABLES Final Res ult [facility] [address] [place] [phone] * HIV-1/2 Antigen and Antibodies, Fourth Generation, with Reflexes (08/02/2024 3:17 PM EDT) HIV AB/AG Nonreactive Nonreactive [facility] Comment:HIV-1 p24 Ag and/or HIV-1/HIV-2 Ab not detected.A test result that is nonreactive does not exclude thepossibility of exposure to or infection with HIV-1 and/orHIV-2. Nonreactive results in this assay for individualswith prior exposure to HIV-1 and/or HIV-2 may be due toantigen and antibody levels that are below the limit ofdetection of this assay.[employer] HIV Ag/Ab Combo assay result andsupplemental assay results should be interpreted inconjunction with the patient's clinical presentation,history and other laboratory results. If the results areinconsistent with clinical evidence, additional testing issuggested to confirm the result. Blood Venous blood specimen / Unknown 08/02/2024 3:17 PM EDT 08/02/2024 4:03 PM EDT Ernestina ARRIETA LAB BLOOD ORDERABLES Final Res ult [facility] [address] [place] [address] [phone] from Last 3 Months or Most Recently Relevant to Health Maintenance Insurance [facility] Care Teams Acupuncture Physician Relationship Specialty Start Date End Date Ernestina Vera FNP [address] [place] [address] PCP - General Family Medicine 10/25/24
== END 2025-02-08 18:19 | disposition home or self-care (01) ==
LOC: HO.ED 18:17
PROVIDERS: Emergency Provider Student in an Organized Health Care Education/Training Program; PCP Nurse Practitioner Family
DX: M25.511 Pain in right shoulder (principal); S43.401A Unspecified sprain of right shoulder joint, initial encounter; X58.XXXA Exposure to other specified factors, initial encounter; Y93.9 Activity, unspecified; Y92.9 Unspecified place or not applicable; Y99.9 Unspecified external cause status
CPT/HCPCS: 73030; 99282; 99283

== ENCOUNTER → 2025-02-08 17:17 | Outpatient (BNV) | payer MEDICAID, SELFPAY | PROVIDERS: Emergency Provider Student in an Organized Health Care Education/Training Program; Visit Provider Radiology Diagnostic Radiology | DX: S49.91XA Unspecified injury of right shoulder and upper arm, initial encounter (principal) | CPT/HCPCS: 73030 ==